=== PATIENT | male | born 1945 | race Hispanic/Latino ===

== ENCOUNTER 2016-09-02 15:48 | Inpatient (IN) | payer MEDICARE ==
--- NOTE | 2016-09-02 17:11 | Emergency Department Report ---
Chief Complaint: Back Pain/Injury Stated Complaint: BACK PAIN Time Seen by Provider: 09/02/16 17:05 - HPI History of Present Illness: Patient presents today with a main concern of lower back pain and bilateral knee pain. He states the leg pain is worse when he sitting or standing and better when he is lying down. He also complains of lower extremity edema which he has seen a provider for and is currently taken a diuretic without potassium. He states the diuretic initially helped but is no longer working. He does admit to shortness of breath but denies dizziness, chest pain, nausea, vomiting , fever, chills. - ROS Review of Systems: All other systems unremarkable except documentation in HPI - Exam Vital Signs: Vital Signs 09/02/16 15:55 Temperature 97.8 F Pulse Rate 71 Respiratory 20 Rate Blood Pressure 144/77 O2 Sat by Pulse 98 Oximetry Physical Exam: Gen: Male well-developed and nourished, no apparent distress noted, ambulatory. Cardiovascular: Heart sounds present S1-S2, murmur present patient states he has a history. No gallop, + edema bilateral lower extremities, no ectopy noted , 2+ pulses upper and lower extremities Respiratory: Chest symmetry with respirations, lungs clear to auscultate upper and lower lobes, respirations even and unlabored, no rales, rhonchi, crackles noted. Abdomen: bowel sounds present, soft, distended, nontender, no rigidity, guarding or rebound tenderness Psych: AxOx3, answers questions appropriately, mood full range, affect normal, normal speech and tone. MSE screening note: Focused history and physical exam performed. Due to findings the following was ordered: seen by provider, laboratory and radiology studies ordered, and to go to main ED to be seen by physician ED Medical Decision Making - Medical Decision Making seen by provider, laboratory and radiology studies ordered, and to go to main ED to be seen by physician ED Disposition for MSE Condition: Stable
[2016-09-02 17:52] LABS: Basophils % (Auto) 0.5 % (0.0-1.8); Hematocrit 39.8 % (35.5-45.6); Hemoglobin 12.9 gm/dl (11.8-15.2); Mean Corpuscular HGB Conc 33 % (32-34); Mean Corpuscular Hemoglobin 29 pg (28-32); Mean Corpuscular Volume 88 fl (84-94); Platelet Count 228 K/mm3 (140-440); Red Blood Count 4.53 M/mm3 (3.65-5.03); Red Cell Distribution Width 13.7 % (13.2-15.2)
[2016-09-02 17:57] LABS: Alanine Aminotransferase 38 units/L (7-56); Albumin 4.1 g/dL (3.9-5); Albumin/Globulin Ratio 1.4 %; Alkaline Phosphatase 62 units/L (35-129); Anion Gap 20 mmol/L; Bilirubin,Total 0.3 mg/dL (0.1-1.2); Blood Urea Nitrogen 18 mg/dL (9-20); Calcium 9.1 mg/dL (8.4-10.2); Carbon Dioxide 25 mmol/L (22-30); Chloride 101.5 mmol/L (98-107); Creatine Kinase 222 units/L (55-170); Glucose 137 mg/dL (75-100); Sodium 142 mmol/L (137-145)
[2016-09-02] MEDS ORDERED: TORADOL IM ONE (22:15)
[2016-09-02] MEDS ORDERED: TYLENOL PO ONE (22:15)
--- NOTE | 2016-09-02 22:18 | Emergency Department Report ---
ED General Adult HPI - General Chief complaint: Back Pain/Injury Stated complaint: BACK PAIN Time Seen by Provider: 09/02/16 17:05 Source: patient, RN notes reviewed Mode of arrival: Ambulatory Limitations: No Limitations - History of Present Illness Initial comments: This is a 70-year-old male. He is previously unknown to me. Does not really have a local primary care doctor. Has a past medical history of hypertension, and obesity. The patient presents to the ER with multiple complaints. The patient's first complaint is lower back pain. It is paralumbar. It is achy. It does not radiate. It worsens with physical exertion, decreases with rest, worsens when leaning forward. There is no extremity weakness. There is no extremity numbness. There is no bladder or bowel retention or incontinence. There is no chest pain. There is no abdominal pain. The patient does admits to chronic shortness of breath for months, which is not new, worsening or different, and he reports that this is not a complaint of his. His second complaint is bilateral lower extremity swelling which has been going on for a while. He reports that a prior primary care doctor was prescribing him a "water pill", which seems to work, but is not working now. There is no leg pain. The patient has been doing some trips back and forth from here to [place]. There is no hematemesis. There is no bright red blood per rectum. There is no chest pain. -: Gradual Location: back, left, right, lower extremity Quality: aching Consistency: intermittent Improves with: rest Worsens with: movement Associated Symptoms: denies: confusion, chest pain, cough, diaphoresis, loss of appetite, malaise, nausea/vomiting, rash, seizure, syncope, weakness - Related Data Allergies Allergy/AdvReac Type Severity Reaction Status Date / Time No Known Allergies Allergy Verified 09/02/16 16:07 ED Review of Systems ROS: Stated complaint: BACK PAIN Other details as noted in HPI Constitutional: denies: fever, malaise Eyes: denies: vision change ENT: denies: epistaxis Respiratory: denies: cough Cardiovascular: denies: chest pain Gastrointestinal: vomiting. denies: abdominal pain Musculoskeletal: back pain Skin: denies: lesions Neurological: denies: headache, weakness Psychiatric: denies: depression ED Past Medical Hx - Past Medical History Hx Hypertension: Yes Additional medical history: low Chlesterol - Surgical History Past Surgical History?: No - Social History Smoking Status: Never Smoker Substance Use Type: Alcohol ED Physical Exam - General Limitations: No Limitations General appearance: alert, in no apparent distress - Head Head exam: Present: atraumatic, normocephalic - Eye Eye exam: Present: normal appearance, EOMI. Absent: nystagmus - ENT ENT exam: Present: normal exam, normal orophraynx, mucous membranes moist, normal external ear exam - Neck Neck exam: Present: normal inspection, full ROM. Absent: tenderness, meningismus - Respiratory Respiratory exam: Present: normal lung sounds bilaterally. Absent: respiratory distress, wheezes, rales, rhonchi, stridor, decreased breath sounds - Cardiovascular Cardiovascular Exam: Present: regular rate, normal rhythm, normal heart sounds. Absent: bradycardia, tachycardia, irregular rhythm, systolic murmur, diastolic murmur, rubs, gallop - GI/Abdominal GI/Abdominal exam: Present: soft, normal bowel sounds. Absent: distended, tenderness, guarding, rebound, rigid, pulsatile mass - Rectal Rectal exam: Present: deferred - Extremities Exam Extremities exam: Present: normal inspection, full ROM, normal capillary refill , pedal edema. Absent: calf tenderness - Back Exam Back exam: Present: normal inspection, full ROM, paraspinal tenderness, vertebral tenderness. Absent: tenderness, CVA tenderness (R), CVA tenderness (L ), muscle spasm - Neurological Exam Neurological exam: Present: alert, oriented X3, normal gait, other (Extraocular movements intact. Tongue midline. No facial droop. Facial sensation intact to light touch in the V1, V2, V3 distribution bilaterally. 5 and 5 strength in 4 extremities.. Sensation is intact to light touch in 4 extremities.). Absent : motor sensory deficit - Psychiatric Psychiatric exam: Present: normal affect, normal mood - Skin Skin exam: Present: warm, dry, intact, normal color. Absent: rash ED Course Vital Signs 09/02/16 09/02/16 09/03/16 15:55 21:59 00:43 Temperature 97.8 F Pulse Rate 71 102 H Respiratory 20 20 18 Rate Blood Pressure 144/77 Blood Pressure 147/74 [Left] O2 Sat by Pulse 98 100 99 Oximetry 09/03/16 03:53 Temperature 97.8 F Pulse Rate 61 Respiratory 18 Rate Blood Pressure Blood Pressure 124/50 [Left] O2 Sat by Pulse 97 Oximetry - Reevaluation(s) Reevaluation #1: 09/02/16 23:54 Differential diagnosis: Arthritis, spinal stenosis, compression fracture, AAA, peripheral edema, venous insufficiency Assessment and plan: 70-year-old male with 2 complaints. His back pain appears to be mechanical, he walks with a steady gait, clinically does not appear to be consistent with epidural compression syndrome. I highly doubt acute disease, but given that he is visiting from [place], does not have primary care established over here, we'll obtain a noncontrast CT scan of the abdomen and pelvis to exclude AAA, and severe bony disease. He will be treated symptomatically. In terms of the patient's lower extremity swelling, appears to be most consistent with peripheral edema/venous insufficiency. He does not have crackles or rales, his laboratory studies are essentially unremarkable, and a chest x-ray did not demonstrate fluid overload. I highly doubt DVT, but I haven 't ordered an outpatient CT study to be performed and have instructed the patient to follow up to have it performed. Advanced age, and a high pretest probability for alternative diagnoses, I believe that the risks of systemic anticoagulation outweigh the benefits and will withhold anticoagulation unless a DVT study comes back positive., Reevaluation #2: 09/03/16 03:18 CT scan demonstrates appendicitis. Of note, there was a prolonged time to acquire diagnosis because the Scanner was very backed up today from numerous patients that were critically ill, and it took a very prolonged period of time for the testis itself to be performed, but the interpretation itself was rendered fairly expediently. The patient is amenable to staying. He will be given IV fluids, pain medication , antibiotics. The general surgeon, Dr. fan, graciously accepts the patient to his service. ED Medical Decision Making - Lab Data Result diagrams: 09/04/16 08:31 09/02/16 17:20 Vital Signs (72 hours) 09/02/16 09/02/16 15:55 21:59 Temperature 97.8 F Pulse Rate 71 Respiratory 20 20 Rate Blood Pressure 144/77 O2 Sat by Pulse 98 100 Oximetry Lab Results 09/02/16 09/02/16 09/02/16 Range/Units 17:20 17:20 22:02 WBC 6.0 (4.5-11.0) K/mm3 RBC 4.53 (3.65-5.03) M/mm3 Hgb 12.9 (11.8-15.2) gm/dl Hct 39.8 (35.5-45.6) % MCV 88 (84-94) fl MCH 29 (28-32) pg MCHC 33 (32-34) % RDW 13.7 (13.2-15.2) % Plt Count 228 (140-440) K/mm3 Lymph % (Auto) 24.9 (13.4-35.0) % [place] % (Auto) 8.8 H (0.0-7.3) % Eos % (Auto) 3.0 (0.0-4.3) % Baso % (Auto) 0.5 (0.0-1.8) % Lymph # 1.5 (1.2-5.4) K/mm3 [place] # 0.5 (0.0-0.8) K/mm3 Eos # 0.2 (0.0-0.4) K/mm3 Baso # 0.0 (0.0-0.1) K/mm3 Seg Neutrophils % 62.8 (40.0-70.0) % Seg Neutrophils # 3.8 (1.8-7.7) K/mm3 Sodium 142 (137-145) mmol/L Potassium 4.0 (3.6-5.0) mmol/L Chloride 101.5 (98-107) mmol/L Carbon Dioxide 25 (22-30) mmol/L Anion Gap 20 mmol/L BUN 18 (9-20) mg/dL Creatinine 0.9 (0.8-1.5) mg/dL Estimated GFR > 60 ml/min BUN/Creatinine Ratio 20.00 % Glucose 137 H (75-100) mg/dL Calcium 9.1 (8.4-10.2) mg/dL Total Bilirubin 0.3 (0.1-1.2) mg/dL AST 34 (5-40) units/L ALT 38 (7-56) units/L Alkaline Phosphatase 62 (35-129) units/L Total Creatine Kinase 222 H (55-170) units/L NT-Pro-B Natriuret Pep 157.2 (0-900) pg/mL Total Protein 7.0 (6.3-8.2) g/dL Albumin 4.1 (3.9-5) g/dL Albumin/Globulin Ratio 1.4 % Urine Color Yellow (Yellow) Urine Turbidity Clear (Clear) Urine pH 5.0 (5.0-7.0) Ur Specific [place] 1.027 (1.003-1.030) Urine Protein <15 mg/dl (Negative) mg/dL Urine Glucose (UA) Neg (Negative) mg/dL Urine Ketones Tr (Negative) mg/dL Urine Blood Neg (Negative) Urine Nitrite Neg (Negative) Urine Bilirubin Neg (Negative) Urine Urobilinogen < 2.0 (<2.0) mg/dL Ur Leukocyte Esterase Neg (Negative) Urine WBC (Auto) < 1.0 (0.0-6.0) /HPF Urine RBC (Auto) 3.0 (0.0-6.0) /HPF U Epithel Cells (Auto) < 1.0 (0-13.0) /HPF Urine Mucus 1+ /HPF Critical care attestation.: If time is entered above; I have spent that time in minutes in the direct care of this critically ill patient, excluding procedure time. ED Disposition Clinical Impression: Appendicitis, Back pain Disposition: OP ADMITTED IP TO THIS HOSP Is pt being admited?: Yes Does the pt Need Aspirin: No Condition: Stable
[2016-09-02 22:21] LABS: Bilirubin,Urine NEG (Negative); Blood,Urine NEG (Negative); Ketones,Urine TR mg/dL (Negative); Leukocyte Esterase,Urine NEG (Negative); Mucus,Urine 1+ /HPF; Nitrite,Urine NEG (Negative); Protein,Urine <15 mg/dL mg/dL (Negative); Urobilinogen,Urine < 2.0 mg/dL (<2.0); WBC,Urine < 1.0 /HPF (0.0-6.0)
--- NOTE | 2016-09-03 00:19 | XRay Report ---
FINAL REPORT PROCEDURE: XR CHEST 1V AP TECHNIQUE: Chest radiograph anteroposterior view. CPT 32347 HISTORY: b/l lower ext swelling ? chf COMPARISON: No prior studies are available for comparison. FINDINGS: Heart: Heart is enlarged. Mediastinum/Vessels: Normal. Lungs/Pleural space: The right hemidiaphragm is elevated. There is infiltrate versus atelectasis at the right lung base. There are no definite effusions. There is no pneumothorax. Bony thorax: No acute osseous abnormality. Life support devices: None. IMPRESSION: Heart is enlarged. The right hemidiaphragm is elevated. There is infiltrate versus atelectasis at the right lung base. There are no definite effusions. There is no pneumothorax. .
[2016-09-03] MEDS ORDERED: ZOSYN/NS 4.5GM/100ML 4.5 GM/100 ML VIAL IV ONE ×2 (03:13→03:44)
--- NOTE | 2016-09-03 03:14 | Cat Scan Report ---
FINAL REPORT PROCEDURE: CT ABDOMEN PELVIS WO CON TECHNIQUE: Computerized axial tomography of the abdomen and pelvis was performed without intravenous contrast. This study is performed without intravascular contrast material and its sensitivity for abdominal and pelvic pathology, including neoplasms, inflammation, abscess, free fluid, thrombosis, arterial dissection and infarction, is reduced compared with a contrast enhanced study. HISTORY: lower back pain COMPARISON: No prior studies are available for comparison. FINDINGS: Visualized lower thorax: There is atelectasis at the right lung base.. Liver: Liver is fatty. There is no mass.. Spleen: Normal size and attenuation. Gallbladder and biliary system: There are gallstones.. Pancreas: There is fatty atrophy of the pancreas.. Adrenals: There is a low-density mass in the right adrenal gland measuring 3.5 centimeters suggesting an adenoma.. Kidneys: There are no kidney stones. There is no hydronephrosis.. GI tract: There is no bowel obstruction. There is appendicitis. The appendix measures 18 millimeters in diameter. There are inflammatory changes of the surrounding mesenteric fat. Pathology can be seen on axial series images 154 through 167. There is no rupture.. Lymph nodes and mesentery: Normal. Vasculature: There is calcified plaque in the abdominal aorta. There is no aneurysm.. Bladder: Normal. Reproductive organs: Normal. Peritoneum: There is no ascites, free air, abscess or adenopathy.. Musculoskeletal structures: No significant abnormality. Other: There is a left inguinal hernia containing fat only.. IMPRESSION: Appendicitis without rupture. Cholelithiasis without evidence of cholecystitis. Dr. Juan was notified by telephone at 2 a.m. central time. .
[2016-09-03] MEDS ORDERED: ZOFRAN IV ONE (03:18)
[2016-09-03] MEDS ORDERED: MORPHINE IV ONE (03:18)
[2016-09-03] MEDS ORDERED: NACL 0.9% 1000 ML 1,000 ML IV ONE (03:18)
[2016-09-03] MEDS ORDERED: ZOFRAN IV PRN (03:44)
[2016-09-03] MEDS ORDERED: D5W/0.45% NACL/KCL 20 MEQ 20 MEQ/1,000 ML BAG IV SCH (04:00)
[2016-09-03] MEDS: DILAUDID IV PRN (07:17)
[2016-09-03] MEDS ORDERED: PEPCID PO NR (12:00)
[2016-09-03] MEDS ORDERED: NACL 0.9% 1000 ML 1,000 ML IV SCH (12:00)
[2016-09-03] MEDS ORDERED: VERSED IV NR (12:00)
[2016-09-03] MEDS ORDERED: DILAUDID ONE (12:31)
[2016-09-03] MEDS ORDERED: DIPRIVAN 10 MG/ML IV ONE (12:31)
[2016-09-03] MEDS ORDERED: ZOFRAN ONE (12:31)
[2016-09-03] MEDS ORDERED: ZEMURON IV ONE (12:31)
[2016-09-03] MEDS ORDERED: XYLOCAINE MPF 2% ONE (12:31)
[2016-09-03] MEDS ORDERED: DECADRON ONE (12:32)
--- NOTE | 2016-09-03 12:42 | Anesthesia Day of Surgery ---
Anesthesia Day of Surgery - Day of Surgery Patient Examined: Yes Patient H&P Reviewed: Yes Patient is NPO: Yes
--- NOTE | 2016-09-03 12:43 | Anesthesia Consultation ---
Anesthesia Consult and Med Hx Date of service: 09/03/16 - Airway Anesthetic Teeth Evaluation: Poor (few teeth) ROM Head & Neck: Adequate Mental/Hyoid Distance: Adequate Mallampati Class: Class I Intubation Access Assessment: Probably Good - Pulmonary Exam CTA: Yes - Cardiac Exam Cardiac Exam: RRR - Pre-Operative Health Status ASA Pre-Surgery Classification: ASA2 Proposed Anesthetic Plan: General - Cardiovascular System Hx Hypertension: Yes - Central Nervous System Hx Psychiatric Problems: No - Other Systems Hx Obesity: Yes
[2016-09-03] MEDS ORDERED: ZOSYN/NS 4.5GM/100ML 4.5 GM/100 ML VIAL IV SCH (13:06)
--- NOTE | 2016-09-03 13:21 | Post Anesthesia Evaluation ---
- Post Anesthesia Evaluation Patient Participated: Yes Airway Patent: Yes Stable Respiratory Function: Yes Nausea/Vomiting: No Temp > 96.8F: Yes Pain Manageable: Yes Adequeate Hydration: Yes Anesthesia Complications: No Block Receding Appropriately: Not Applicable Patient on Ventilator: No
[2016-09-03] MEDS ORDERED: MARCAINE 0.5% INFILTRATI ONE ×2 (14:07)
[2016-09-03] MEDS ORDERED: NACL 0.9% IR ONE (14:07)
[2016-09-03] MEDS ORDERED: PROVENTIL IH ONE (16:03)
[2016-09-03] MEDS ORDERED: PROVENTIL IH PRN ×2 (16:07→18:40)
[2016-09-03] MEDS: NORMODYNE IV PRN ×2 (16:15→17:35)
--- NOTE | 2016-09-03 16:51 | XRay Report ---
IVP in the OR. History: Evaluate ureters status post laparoscopic appendectomy. Findings: The technical quality of the study is limited by the patient's body habitus. Dilute contrast is seen within the collecting systems bilaterally which appear normal. Both ureters are demonstrated and are normal in caliber. The distal third of each ureter appears normal. The urinary bladder is not evaluated. Impression: No evidence of ureteral injury. There is minimal opacification of the collecting elements which appear normal.
--- NOTE | 2016-09-03 17:37 | Admit Criteria Form ---
Admission Criteria Documentation: AMBULATORY SURGERY EXCEPTION CRITERIA Ambulatory Surgery Exception Criteria ( Place 'X' for any and all applicable criteria): Surgery or procedure performed on ambulatory basis may require inpatient stay for[A] ANY ONE of the following(1)(2)(3)(4)(5)(6)(7)(8)(9): [X] I. A preoperative situation, condition, or finding that warrants inpatient stay as indicated by ANY ONE of the following: [] a) Inpatient care needed because of severity of a disease or condition rather than the surgery (eg, severe cardiac or respiratory disease, severe infection) (15) (16 ) (17) (18) [X] b) Emergent procedure (eg, angioplasty for acute ischemia)(19) [] c) Complex surgical approach or situation as indicated by ANY ONE of the following(3): [] i) Open approach needed instead of usual endoscopic, transcatheter, or other less invasive procedure [] ii) Difficult approach because of previous operation [] iii) Airway monitoring required after open neck procedures(20)(21) [] iv) Large mass requiring unusually extensive dissection [] v) Additional complicating feature requiring inpatient care (eg, drain management)(22(23): [] d) Major surgery in a pt with high anesthetic risk as indicated by ANY ONE of the following (2)(3)(5)(7)(8): [] i) ASA risk class III or higher (severe systemic disease impairing function) [D] [] ii) Advanced age (eg, older than 85 years)(14)(24) [] iii) Symptomatic heart failure(25) [] iv) Symptomatic asthma or COPD(8)(21) [] v) Morbid obesity with hemodynamic or respiratory problems(20)( 21)(26)(27) [] vi) Obstructive sleep apnea(20)(21) [] vii) Former premature infants who are younger than 60 weeks [] viii) High risk for severe postoperative abnormalities (eg, severe postoperative hypocalcemia after parathyroidectomy for severe hyperparathyroidism)(27)( 28) [] ix) Unstable angina(25) [] e) Drug-related risk requiring inpatient stay as indicated by ANY ONE of the following(5)(10)(14)(32)(33) [] i) Procedure requires discontinuing drugs or other therapy (eg , antiarrhythmic medication, antiseizure medication), which necessitates inpatient observation or treatment.(18)(31) [] ii) Major surgery and high risk drug use as indicated by ANY ONE of the following: [] 1) Active abuse of cocaine or similar drug [] 2) Monoamine oxidase inhibitor use [] 3) Other drug identified as posing risk [] f) Inadequate outpatient care situation as indicated by ANY ONE of the following(5)(10)(14)(32)(33) [] i) Patient lives remote from medical facility and procedure has urgent complication potential, and temporary nearby residence cannot be arranged [] ii) Patient will have postprocedure incapacitation and inadequate assistance at home, or alternative level of care cannot be arranged. [] iii) Patient will have long general anesthesia or procedure side effect resolution time, and competent person to stay with patient on first postoperative night at home or alternative level of care cannot be arranged. []iv) Other inadequate outpatient situation that cannot be handled by other means [] II. A perioperative event, condition, or finding that warrants inpatient stay as indicated by ANY ONE of the following (1)(2)(3): [] a) Inadequate physiologic recovery: cardiovascular, respiratory, or hemodynamic status not normal or near preoperative baseline(18) [] b) Hemodynamic instability [] c) Patient not alert with near normal or baseline mental status [] d) Temperature not normal or as expected and not appropriate for outpatient treatment of condition [] e) Ambulatory or appropriate activity level status not yet achieved post procedure [E](34)(35)(36) [] f) Operative site not appropriate (eg, unexpected or excessive drainage or bleeding) [] g) Postoperative effects not resolved or adequately managed (eg, significant pain or vomiting not appropriate for outpatient or next level of care)(10)(12) [] h) Complicating features requiring inpatient care as indicated by ANY ONE of the following(37): [] i) Severe complications of procedure (eg, bowel injury, airway compromise, vascular injury,severe hemorrhage) [] ii) Extensive (eg, dissection far beyond usual scope of procedure ) or prolonged (eg, 120 minutes beyond usual) surgery needed requiring inpatient postoperative care [] iii) Conversion to an open or complex procedure that requires inpatient care (eg, open vs laparoscopic cholecystectomy, abdominal vs vaginal hysterectomy)(38) [] iv) Comorbid condition or test result identified during or post procedure that requires inpatient care (7) [] v) Malignant hyperthermia(30) [] vi) Other complicating feature requiring inpatient care(22)(23) Inpatient stay may be needed until ALL of the following are present (1)(2)(3)(4) (5)(6)(10)(14)(33)(40): []a) Physiologic recovery: cardiovascular, respiratory, and hemodynamic status normal or near preoperative baseline []b) Hemodynamic stability []c) Patient alert, with near normal or baseline mental status []d) Temperature appropriate: patient afebrile or temperature appropriate for outpt treatment of condition []e) Activity level appropriate: ambulatory or appropriate activity level post procedure []f) Operative site appropriate as indicated by ALL of the following: []i) Site dry or with expected drainage []ii) Any blood noted is as expected for procedure. []g) Postoperative effects resolved or managed as indicated by ALL of the following: []i) Pain management appropriate for outpatient (or next level of) care(10) []ii) Minimal nausea and vomiting: if present, successfully treated with oral medication(12) []iii) Headache, dizziness, or drowsiness (if present) are mild. []h) Voiding status acceptable as indicated by ANY ONE of the following: []i) Voiding spontaneously []ii) No voiding but instructions given for follow-up in 6 to 8 hours []iii) Urinary catheter in place, and instructions given for follow-up []i) Complicating features requiring inpatient care manageable at a lower level of care(37) []j) Comorbid conditions manageable at a lower level of care(37) The original [employer] content created by [employer] has been revised. The portions of the content which have been revised are identified through the use of italic text or in bold, and [employer] has neither reviewed nor approved the modified material. All other unmodified content is copyright [employer]. Please see references footnoted in the original [employer] edition 2016 Admission Criteria Met: Yes
--- NOTE | 2016-09-03 17:54 | Event Note ---
Date: 09/03/16 70 yo with PMH of HTN, back pain s/p laprascopic converted to open appendectomy today. After surgery in the recovery area, patient having difficulty maintaining oxygen saturations without oxygen. Patient was given two breathing treatments with Albuterol and deep breathing and coughing was tried however oxygen did not improve. He was placed on 3L and oxygen was ranging 88-90%. CXR ordered which shows right lower atelectasis vs infiltrate. Dr. Adhikari consulted for further management. Oxygen increased to 4L. Oxygen sats 92%. Dr. Adhikari to follow on floor.
--- NOTE | 2016-09-03 18:05 | XRay Report ---
FINAL REPORT EXAM: XR CHEST 1V AP HISTORY: Decreased Oxygen Saturations TECHNIQUE: Chest portable upright PRIORS: Comparison made to prior chest radiograph same a correlated with CT abdomen and pelvis September 03, 2016 FINDINGS: Elevation the right hemidiaphragm with atelectasis at the right lung base noted unchanged. Cardiac silhouette is normal in size for technique. Pulmonary vasculature is within normal limits. No pleural effusion seen. IMPRESSION: Elevated right hemidiaphragm with right basilar atelectasis unchanged
--- NOTE | 2016-09-03 18:39 | Consultation ---
History of Present Illness - Reason for Consult Consult date: 09/03/16 hypoxia - History of Present Illness Patient supplies assisted 70-year-old male with history of obesity, hypertension , chronic leg pain recently on Lasix presents to the ER with complaints of bilateral lower extremity pain with paralumbar back pain worse with physical exertion and improves with rest rated at 3/10 in intensity. During the course of the workup he was identified to have acute appendicitis. She was taken to the OR for laparoscopic appendectomy that was converted to open. Seated patient had difficulty maintaining his oxygenation status for which he was not admitted. The patient reports chronic history of shortness of breath although has never been a smoker. He reports cough nonproductive. He denies any hemoptysis or hematemesis or bright red blood per rectum or chest pain. He recently had some trips back and forth to [place] from [place] but this was by flight and not by road . On my exam but his mentation is improved much more awake still complains of pain in the abdomen with cough off. He denies any continued back pain and leg pain. He again denies any chest pain shortness of breath nausea vomiting. ROS Constitutional: No fever, fatigue or weight loss. Skin: No rash. Eyes: No recent vision problems or eye pain. ENT: No congestion, ear pain, or sore throat. Endocrine: No thyroid problems. Cardiovascular: No chest pain. Respiratory: Cough no shortness of breath, congestion, or wheezing. Gastrointestinal: Abdominal pain at incision site. Nausea, vomiting, or diarrhea. Genitourinary: No dysuria. Musculoskeletal: No joint swelling. Neurologic: No seizures. Hematologic: No unusual bruising or bleeding. Psychiatric: No psychiatric problems, hallucinations or depression. All other systems reviewed and otherwise negative. Past History Past Medical History: hypertension, other (morbid obesity, chronic leg pain) Past Surgical History: No surgical history Social history: full code. denies: smoking, alcohol abuse Family history: no significant family history Medications and Allergies Allergies Allergy/AdvReac Type Severity Reaction Status Date / Time No Known Allergies Allergy Verified 09/02/16 16:07 Active Meds: Active Medications Albuterol (Proventil) 2.5 mg IH ONCE PRN PRN Reason: Shortness Of Breath Last Admin: 09/03/16 17:14 Dose: 2.5 mg Famotidine (Pepcid) 20 mg PO PREOP NR Stop: 09/03/16 23:59 Last Admin: 09/03/16 12:34 Dose: 20 mg Hydromorphone HCl (Dilaudid) 0.5 mg IV Q4H PRN PRN Reason: Pain, Moderate (4-6) Last Admin: 09/03/16 07:17 Dose: 0.5 mg Potassium Chloride/Dextrose/Sod Cl (D5w/0.45% Nacl/Kcl 20 Meq) 20 meq in 1,000 mls @ 125 mls/hr IV DIRECT ELVIA Last Admin: 09/03/16 07:16 Dose: 125 mls/hr Sodium Chloride (Nacl 0.9% 1000 Ml) 1,000 mls @ 75 mls/hr IV DIRECT ELVIA Last Admin: 09/03/16 12:32 Dose: 75 mls/hr Piperacillin Sod/Tazobactam Sod (Zosyn/Ns 4.5gm/100ml) 4.5 gm in 100 mls @ 200 mls/hr IV PREOP ELVIA PRN Reason: Protocol Stop: 09/03/16 23:59 Labetalol HCl (Normodyne) 10 mg IV Q10MIN PRN PRN Reason: Hypertension Stop: 09/04/16 16:07 Last Admin: 09/03/16 17:35 Dose: 10 mg Midazolam HCl (Versed) 2 mg IV PREOP NR Stop: 09/03/16 23:59 Last Admin: 09/03/16 13:20 Dose: 2 mg Ondansetron HCl (Zofran) 4 mg IV Q8HR PRN PRN Reason: Nausea Exam - Physical Exam Narrative exam: VITAL SIGNS: Reviewed. GENERAL: The patient appeared well nourished and normally developed, obese. Vital signs as documented. HEAD: No signs of head trauma. EYES: Pupils are equal. Extraocular motions intact. EARS: Hearing grossly intact. MOUTH: Oropharynx is normal. NECK: No adenopathy, no JVD. CHEST: Chest with mild crepitations bilaterally No wheezes, rales, or rhonchi. CARDIAC: Regular rate and rhythm. S1 and S2, without murmurs, gallops, or rubs. VASCULAR: No Edema. Peripheral pulses normal and equal in all extremities. ABDOMEN: Soft, tender surgical site, COLLINS drain in place, incision noted no overt drainage. No sign of distention. No rebound or guarding, and no masses palpated. Bowel Sounds normal. MUSCULOSKELETAL: Good range of motion of all major joints. Extremities without clubbing, cyanosis or edema. NEUROLOGIC EXAM: Alert and oriented x 3. No focal sensory or strength deficits. Speech normal. Follows commands. PSYCHIATRIC: Mood normal. SKIN: No rash or lesions. - Constitutional Vitals: Temp Pulse Resp BP Pulse Ox 98 F 75 20 173/82 94 09/03/16 18:00 09/03/16 18:00 09/03/16 18:00 09/03/16 18:00 09/03/16 18:00 Results - Labs CBC & Chem 7: 09/02/16 17:20 09/02/16 17:20 - Imaging and Cardiology Chest x-ray: image reviewed (right lower lobe atelectasis) Assessment and Plan Patient supplies assisted 70-year-old male with history of obesity, hypertension , chronic leg pain recently on Lasix presents to the ER with complaints of bilateral lower extremity pain with paralumbar back pain worse with physical exertion and improves with rest rated at 3/10 in intensity. During the course of the workup he was identified to have acute appendicitis. She was taken to the OR for laparoscopic appendectomy that was converted to open. Seated patient had difficulty maintaining his oxygenation status for which he was not admitted. The patient reports chronic history of shortness of breath although has never been a smoker. He reports cough nonproductive. He denies any hemoptysis or hematemesis or bright red blood per rectum or chest pain. He recently had some trips back and forth to [place] from [place] but this was by flight and not by road . On my exam but his mentation is improved much more awake still complains of pain in the abdomen with cough off. He denies any continued back pain and leg pain. He again denies any chest pain shortness of breath nausea vomiting. * Acute and chronic hypoxic respiratory failure * Morbid obesity * Right lower lobe atelectasis * Appendicitis status post open appendectomy * Chronic bilateral lower extremity pain * Lower back pain by lumbar region on the right questionable related to appendicitis Plan * We'll continue oxygen therapy at this point * Add DuoNeb nebs scheduled and when necessary * We'll rule out DVT, bilateral lower extremity and I think this is less likely * We'll add Tessalon Perles * Have added incentive spirometer discussed with the patient the need to use this to prevent pneumonia. This will also help with a right lower lobe atelectasis but is noted. * Monitor for any development of any fever curve * Monitor COLLINS drain * DVT prophylaxis with SCDs and GI prophylaxis with pantoprazole * Plan of care discussed in detail with the patient. Thank you so much for allowing us to put in the care of your patient as information become available more therapeutic and diagnostic measures were noted improvement
--- NOTE | 2016-09-03 21:44 | Operative Report ---
PREOPERATIVE DIAGNOSIS: Acute appendicitis. POSTOPERATIVE DIAGNOSIS: Acute appendicitis. PROCEDURE: Laparoscopic appendectomy and converted to open appendectomy as the appendix could not be delineated really well. Lots of dissection was to be performed and this was not easy to do. So, we had to convert to an open and the appendix was seen to be inflamed and stuck to the lateral posterior ____. I had to go retrogradely suturing it at the level of its base and put 1 more stitch and go retrogradely taking care of the mesoappendix with the use of Bovie. It was very friable, I had to take it into pieces, I took about 3 pieces. ANESTHESIA: General. BLOOD LOSS: Not more than 50 mL. DESCRIPTION OF PROCEDURE: With the patient in supine position, ____ and draped in usual fashion. I made a small incision under local anesthesia in the left lower quadrant. With the Veress needle, I was able to do CO2 pressure of 15 for which #5 trocar was inserted. Then, another 5 was done in the mid lower abdomen and 10 in the mid upper epigastrium. All these were done under local anesthesia. We tried to find the cecum, it was not easy; then slowly I was able to isolate it and I went slowly inferiorly looking for the appendix. It was not easy. I tried this on multiple occasions with use of a grasper to no avail, so I had to convert to an open appendectomy. So, all the trocars were removed, deflating the abdominal cavity and then making incision in the right lower quadrant deep subcutaneous tissue all the way down to fascia, which was incised, then I was able to reach the peritoneum. The appendix was very far retroperitoneally located, so I had to transect it at its base with the use of 2 stitches of 3-0 Vicryl and then go retrogradely towards its tip and lots of inflammation there and lots of scar tissue in that area. I was able to remove it, but it went out in 2 pieces, about 3 to 4 pieces then went ahead and left a drain in that area. The wound was then closed with use of 3-0 Vicryl for the ____ interruptedly and #1 for the multiple fascias interruptedly and the skin with miguel ángel. The patient was then transferred to the recovery room in good condition, going to check with an IVP, I am concerned about the ureter on the right side. JOB# [id number] DEJON/JAYA
[2016-09-03 22:17] VITALS: BP 156/67
[2016-09-03] MEDS: DUONEB 0.5 MG-3 MG/3 ML SOLN IH SCH (22:19)
--- NOTE | 2016-09-04 01:34 | Consultation ---
HISTORY OF PRESENT ILLNESS: I saw this man this morning. He is a 70-year-old white male. He is obese. He came because of nonspecific aches and pain to the abdomen and he had no nausea nor vomiting. His complained also was to the back as well. So, he was evaluated by our ER physician. He had multiple complaints of lumbar lower back and torso ____ he is on the obese side. The patient has chronic shortness of breath as well. He had a CT of the abdomen and the pelvis that showed evidence of dilated appendix, it was inflamed. It measured about ____ mm in diameter. There are also inflammatory changes surrounding the mesenteric fat as well. The patient also was found to have a small mass in the suprarenal gland and stones in the gallbladder. PHYSICAL EXAMINATION: GENERAL: At this point showed a very obese man who is in pain to the right lower quadrant. HEAD AND NECK: Negative. CHEST: Clear. HEART: Sound normal to me. ABDOMEN: Protuberant, very, with severe tenderness all over, particularly on the right side inferiorly. EXTREMITIES: Showed no evidence of edema. IMPRESSION: Right-sided abdominal pain with evidence of appendicitis seen on the CT scan. I believe this need to be addressed surgically, we will try to have this done today. JOB# [id number] RANDEEK/JAYA Pt was told that he has enlarged Rt adrenal gland , , and stones in the GB . DAO
[2016-09-04] MEDS: DILAUDID IV PRN (02:04)
[2016-09-04] MEDS: DUONEB 0.5 MG-3 MG/3 ML SOLN IH SCH ×3 (08:00→19:21)
[2016-09-04 08:41] LABS: Basophils % (Auto) 0.2 % (0.0-1.8); Eosinophils % (Auto) 0.1 % (0.0-4.3); Hematocrit 37.8 % (35.5-45.6); Hemoglobin 12.2 gm/dl (11.8-15.2); Mean Corpuscular HGB Conc 32 % (32-34); Mean Corpuscular Hemoglobin 28 pg (28-32); Mean Corpuscular Volume 88 fl (84-94); Platelet Count 237 K/mm3 (140-440); White Blood Count 13.1 K/mm3 (4.5-11.0)
--- NOTE | 2016-09-04 12:07 | Progress Note ---
Subjective Patient Reports: Positive: feels better, pain is less, flatus Narrative: doing finr IVP ok , pt is ambulatory , abd soft , wound OK ,Pt pulled drain! to see me in 10 days , to [facility] temp tid to call if above 100. Objective Vital Signs - 12hr 09/04/16 09/04/16 08:00 08:18 Pulse Rate [ 76 84 Bilateral Throughout] Respiratory 16 16 Rate [Bilateral Throughout] - Labs 09/04/16 08:31 09/02/16 17:20
--- NOTE | 2016-09-04 16:09 | Progress Note ---
Assessment and Plan Assessment and plan: Patient supplies assisted 70-year-old male with history of obesity, hypertension , chronic leg pain recently on Lasix presents to the ER with complaints of bilateral lower extremity pain with paralumbar back pain worse with physical exertion and improves with rest rated at 3/10 in intensity. During the course of the workup he was identified to have acute appendicitis. She was taken to the OR for laparoscopic appendectomy that was converted to open. Seated patient had difficulty maintaining his oxygenation status for which he was not admitted. The patient reports chronic history of shortness of breath although has never been a smoker. He reports cough nonproductive. He denies any hemoptysis or hematemesis or bright red blood per rectum or chest pain. He recently had some trips back and forth to [place] from [place] but this was by flight and not by road . On my exam but his mentation is improved much more awake still complains of pain in the abdomen with cough off. He denies any continued back pain and leg pain. He again denies any chest pain shortness of breath nausea vomiting. * Acute and chronic hypoxic respiratory failure-resolved * Leukocytosis likely reactive * Morbid obesity * Right lower lobe atelectasis * Appendicitis status post open appendectomy * Chronic bilateral lower extremity pain * Lower back pain by lumbar region on the right questionable related to appendicitis Plan * Patient appears stable to discharge and reviewed the ultrasound evidence of DVT. We'll add inhaler and to the patient for discharge. Recommend following up with primary care physician and also with surgeon outpatient. History Interval history: Patient seen and examined this morning in no acute distress Denies any chest pain, nausea, vomiting, diarrhea No fever noted blood pressure controlled No adverse events reported to me by nursing staff Hospitalist Physical - Physical exam Narrative exam: VITAL SIGNS: Reviewed. GENERAL: The patient appeared well nourished and normally developed, obese. Vital signs as documented. HEAD: No signs of head trauma. EYES: Pupils are equal. Extraocular motions intact. EARS: Hearing grossly intact. MOUTH: Oropharynx is normal. NECK: No adenopathy, no JVD. CHEST: Chest with clear bilaterally No wheezes, rales, or rhonchi. CARDIAC: Regular rate and rhythm. S1 and S2, without murmurs, gallops, or rubs. VASCULAR: No Edema. Peripheral pulses normal and equal in all extremities. ABDOMEN: Soft, tender surgical site, COLLINS drain in place, incision noted no overt drainage. No sign of distention. No rebound or guarding, and no masses palpated. Bowel Sounds normal. MUSCULOSKELETAL: Good range of motion of all major joints. Extremities without clubbing, cyanosis or edema. NEUROLOGIC EXAM: Alert and oriented x 3. No focal sensory or strength deficits. Speech normal. Follows commands. PSYCHIATRIC: Mood normal. SKIN: No rash or lesions. - Constitutional Vitals: Temp Pulse Resp BP Pulse Ox 98 F 62 16 156/67 96 09/03/16 22:16 09/04/16 13:08 09/04/16 13:08 09/03/16 22:16 09/03/16 22:17 Results - Labs CBC & Chem 7: 09/04/16 08:31 09/02/16 17:20 Labs: Laboratory Last Values WBC 13.1 K/mm3 (4.5-11.0) H 09/04/16 08:31 RBC 4.30 M/mm3 (3.65-5.03) 09/04/16 08:31 Hgb 12.2 gm/dl (11.8-15.2) 09/04/16 08:31 Hct 37.8 % (35.5-45.6) 09/04/16 08:31 MCV 88 fl (84-94) 09/04/16 08:31 MCH 28 pg (28-32) 09/04/16 08:31 MCHC 32 % (32-34) 09/04/16 08:31 RDW 14.0 % (13.2-15.2) 09/04/16 08:31 Plt Count 237 K/mm3 (140-440) 09/04/16 08:31 Lymph % (Auto) 9.1 % (13.4-35.0) L 09/04/16 08:31 Dickinson % (Auto) 7.1 % (0.0-7.3) 09/04/16 08:31 Eos % (Auto) 0.1 % (0.0-4.3) 09/04/16 08:31 Baso % (Auto) 0.2 % (0.0-1.8) 09/04/16 08:31 Lymph # 1.2 K/mm3 (1.2-5.4) 09/04/16 08:31 Dickinson # 0.9 K/mm3 (0.0-0.8) H 09/04/16 08:31 Eos # 0.0 K/mm3 (0.0-0.4) 09/04/16 08:31 Baso # 0.0 K/mm3 (0.0-0.1) 09/04/16 08:31 Seg Neutrophils % 83.5 % (40.0-70.0) H 09/04/16 08:31 Seg Neutrophils # 11.0 K/mm3 (1.8-7.7) H 09/04/16 08:31 Sodium 142 mmol/L (137-145) 09/02/16 17:20 Potassium 4.0 mmol/L (3.6-5.0) 09/02/16 17:20 Chloride 101.5 mmol/L (98-107) 09/02/16 17:20 Carbon Dioxide 25 mmol/L (22-30) 09/02/16 17:20 Anion Gap 20 mmol/L 09/02/16 17:20 BUN 18 mg/dL (9-20) 09/02/16 17:20 Creatinine 0.9 mg/dL (0.8-1.5) 09/02/16 17:20 Estimated GFR > 60 ml/min 09/02/16 17:20 BUN/Creatinine Ratio 20.00 % 09/02/16 17:20 Glucose 137 mg/dL (75-100) H 09/02/16 17:20 Calcium 9.1 mg/dL (8.4-10.2) 09/02/16 17:20 Total Bilirubin 0.3 mg/dL (0.1-1.2) 09/02/16 17:20 AST 34 units/L (5-40) 09/02/16 17:20 ALT 38 units/L (7-56) 09/02/16 17:20 Alkaline Phosphatase 62 units/L (35-129) 09/02/16 17:20 Total Creatine Kinase 222 units/L (55-170) H 09/02/16 17:20 NT-Pro-B Natriuret Pep 157.2 pg/mL (0-900) 09/02/16 17:20 Total Protein 7.0 g/dL (6.3-8.2) 09/02/16 17:20 Albumin 4.1 g/dL (3.9-5) 09/02/16 17:20 Albumin/Globulin Ratio 1.4 % 09/02/16 17:20 Urine Color Yellow (Yellow) 09/02/16 22:02 Urine Turbidity Clear (Clear) 09/02/16 22:02 Urine pH 5.0 (5.0-7.0) 09/02/16 22:02 Ur Specific [place] 1.027 (1.003-1.030) 09/02/16 22:02 Urine Protein <15 mg/dl mg/dL (Negative) 09/02/16 22:02 Urine Glucose (UA) Neg mg/dL (Negative) 09/02/16 22:02 Urine Ketones Tr mg/dL (Negative) 09/02/16 22:02 Urine Blood Neg (Negative) 09/02/16 22:02 Urine Nitrite Neg (Negative) 09/02/16 22:02 Urine Bilirubin Neg (Negative) 09/02/16 22:02 Urine Urobilinogen < 2.0 mg/dL (<2.0) 09/02/16 22:02 Ur Leukocyte Esterase Neg (Negative) 09/02/16 22:02 Urine WBC (Auto) < 1.0 /HPF (0.0-6.0) 09/02/16 22:02 Urine RBC (Auto) 3.0 /HPF (0.0-6.0) 09/02/16 22:02 U Epithel Cells (Auto) < 1.0 /HPF (0-13.0) 09/02/16 22:02 Urine Mucus 1+ /HPF 09/02/16 22:02
--- NOTE | 2016-09-07 07:55 | Vascular Lab Report ---
LOWER EXTREMITY VENOUS DUPLEX: REASON FOR EXAM: Pain of the lower extremities. COMMENTS ON THE RIGHT: All veins visualized are freely compressible without evidence of internal echogenicity. Flow is spontaneous and phasic throughout. COMMENTS ON THE LEFT: All veins visualized are freely compressible without evidence of internal echogenicity. Flow is spontaneous and phasic throughout. IMPRESSION: No evidence of acute or chronic deep venous thrombosis in either lower extremity.
--- NOTE | 2016-09-09 23:20 | Discharge Summary ---
FINAL DIAGNOSIS: Appendicitis, pending final pathology report. HOSPITAL COURSE: This man came to the Emergency Room because of severe pain to the right aspect of his abdomen. He was found to have an edematous and thickened appendix. So, he was taken to the operating room where he underwent a laparoscopic appendectomy and then this was converted to an open appendectomy because the appendix was retrocecal, it was way down in the pelvic area. The next day, he was eager to go home, okay with, as well on the CAT scan showed that he had a large adrenal on the right side and he had multiple stones in the gallbladder. I did tell him about these 2 points and he needs to see his family physician for that. Final diagnosis, pending final pathology report. Upon discharge, given prescription for Vicodin and for Keflex, to see me in my office in about 10 days to remove his miguel ángel. JOB# [id number] DEJON/JAYA DC
== END 2016-09-04 20:43 | disposition home or self-care (01) | DRG 341 ==
LOC: ED 15:48 → 2B-SURG 09-03 03:13
PROVIDERS: ADMIT Surgery; ATTEND Surgery
PROC: 0DTJ0ZZ Resection of Appendix, Open Approach (ICD-10-PCS; principal; 2016-09-03)
PROC: 0DJD4ZZ Inspection of Lower Intestinal Tract, Percutaneous Endoscopic Approach (ICD-10-PCS; 2016-09-03)
DX: K37 Unspecified appendicitis (principal); J96.20 Acute and chronic respiratory failure, unspecified whether with hypoxia or hypercapnia; J98.11 Atelectasis; I10 Essential (primary) hypertension; M54.9 Dorsalgia, unspecified; E66.01 Morbid (severe) obesity due to excess calories; Z68.38 Body mass index [BMI] 38.0-38.9, adult
CPT/HCPCS: 36415; 71010; 74176; 74400; 80053; 81001; 82550; 83880; 85025; 88304; 93970; 94640; 96365; 96372; 96375; J1100; J1170; J1885; J2250; J2270; J2405; J2543; J2704; J7030; Q9967